=== PATIENT | female | born 1975 ===

== ENCOUNTER → 2016-07-25 | Day surgery (SDC) | payer OTHER ==
[~2016-07-25] VITALS: Ht 170.2 cm; Wt 74.8 kg
[~2016-07-25] MED LIST: Depo-Medrol 80mg Vial IARTIC ONE; GABAPENTIN300 MG ORAL; TRAMADOL HCL50 MG ORAL
[2016-07-25 07:36] VITALS: BP 108/69
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
--- NOTE | 2016-07-25 09:04 | Pre-Procedure Note/Attestation ---
Pre-Procedure Note/Attestation Complete Prior to Procedure Planned Procedure: left Procedure Narrative: Left L4-L5 and L5-S1 intra articular facet injections. Indications for Procedure Pre-Operative Diagnosis: lumbosacral spondylosis Attestation I attest that I discussed the nature of the procedure; its benefits; risks and complications; and alternatives (and the risks and benefits of such alternatives ), prior to the procedure, with the patient (or the patient's legal roofing sales representative). I attest that, if there was a reasonable possibility of needing a blood transfusion, the patient (or the patient's legal roofing sales representative) was given the [facility] standardized written summary, pursuant to the Lucas Gianni Blood Safety Act ([place] Health and Safety Code # 1645, as amended). I attest that I re-evaluated the patient just prior to the surgery and that there has been no change in the patient's H&P, except as documented below: SARA SALDAÑA M.D. Jul 25, 2016 09:04
[2016-07-25 09:40] VITALS: BP 106/72
--- NOTE | 2016-07-25 10:04 | Brief Operative Note ---
Immediate Post Operative Note Operative Note Chief Complaint: Left lower back pain Pre-op Diagnosis: lumbosacral spondylosis Procedure: Left L4-L5 and L5-S1 intra articular facet injections under fluoroscopic guidance. Post-op Diagnosis: lumbosacral spondylosis Post-op Diagnosis: same as pre-op Findings: consistent w/pre-op dx studies Surgeon: Sara Saldaña MD Pasteurizing Supervisor: none Additional Surgeons: none Anesthesiologist: none Anesthesia: local Specimen: none Complications: none Condition: stable Fluids: none Estimated Blood Loss: none Drains: none Packing: none Tourniquet time: 0 Implant(s) used?: No SARA SALDAÑA M.D. Jul 25, 2016 10:04
--- NOTE | 2016-07-25 10:06 | Discharge Summary ---
Discharge Summary Hospital Course Date of Admission 07/25/2016 Date of Discharge 07/25/2016 Admitting Diagnosis lumbosacral spondylosis Reason for Hospitalization: short stay HPI Liliana Shane is a 40 year old female who was admitted on for Lumbar Spine Spondylosis Consultations none Procedures Left L4-L5 and L5-S1 intra articular facet injections under fluoroscopic guidance. Hospital Course short stay Discharge Condition Upon Discharge: stable Discharge Disposition Patient was discharged to home. Discharge Diagnoses: (1) Lumbosacral spondylosis Discharge Instructions Discharge Instructions Follow up with: Dr. Sara Saldaña Diet: regular Activity: okay to shower For Surgical Patients Dressing Care: may change May shower: Yes Contact your physician for: bleeding, pain, tenderness, redness, swelling, yellowish discharge in the op. site SARA SALDAÑA M.D. Jul 25, 2016 10:06
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
== END | disposition home or self-care (01) ==
LOC: SDS 07:06
DX: M47.897 Other spondylosis, lumbosacral region (principal); G62.9 Polyneuropathy, unspecified
CPT/HCPCS: 64493; 64494; 81025; J1040; 64484